=== PATIENT | female | born 1990 | race Two or more races ===

== ENCOUNTER 2024-03-17 16:19 | Emergency (ER) | payer MEDICAID ==
[~2024-03-17] VITALS: Ht 185.4 cm; Wt 104.3 kg
[2024-03-17 17:17] VITALS: BP 134/68; TEMP 98.8; O2SAT 99
== END 2024-03-17 17:17 | disposition home or self-care (01) ==
LOC: ER 16:26
DX: S09.8XXA Other specified injuries of head, initial encounter (principal); W01.0XXA Fall on same level from slipping, tripping and stumbling without subsequent striking against object, initial encounter; Y93.89 Activity, other specified; Y92.89 Other specified places as the place of occurrence of the external cause; Y99.8 Other external cause status